=== PATIENT | male | born 1975 | race Caucasian/White ===

== ENCOUNTER → 2019-10-13 | Outpatient (CLI) | payer BC ==
[~2019-10-13] MED LIST: AUGMENTIN 875-1 EACH PO; DILTIAZEM ER120 M1 PO; IBUPROFEN 600600 M1 PO; NORCO 5-325 TA1 EACH PO; PAROXETINE HCL20 MG PO; PAXIL20 MG PO; PRINIVIL20 MG PO
== END ==
LOC: SJCVCIMAG 12:17
PROVIDERS: ATTEND Internal Medicine Cardiovascular Disease
DX: R00.0 Tachycardia, unspecified (principal); I10 Essential (primary) hypertension; Z79.899 Other long term (current) drug therapy